=== PATIENT | male | born 1990 | race Caucasian/White ===

== ENCOUNTER 2016-06-08 16:54 | Emergency (ER) | payer MEDICARE ==
[~2016-06-08] VITALS: Ht 177.8 cm; Wt 70.3 kg
[2016-06-08 16:54] VITALS: BP 143/88; PULSE 91; RESP 19; TEMP 97.2; O2SAT 96
[2016-06-08] MEDS ORDERED: ONDANSETRON HCL 4 MG/2 ML VIAL IVP ONE (17:00)
[2016-06-08 17:46] VITALS: BP 121/72; PULSE 83; RESP 17; TEMP 97.9; O2SAT 97
== END 2016-06-08 17:46 | disposition home or self-care (01) ==
LOC: SED 16:54
DX: F10.129 Alcohol abuse with intoxication, unspecified (principal)
CPT/HCPCS: 96374; 99284; J2405